=== PATIENT | female | born 1950 | race Caucasian/White ===

== ENCOUNTER 2019-07-26 12:44 | Observation (INO) ==
[2019-07-26 13:23] LABS: Hematocrit 40.8 % (35.3-44.9)
[2019-07-26] MEDS ORDERED: Ringers Solution, Lactated 1,000 ML IVC SCH ×2 (13:45→21:30)
[2019-07-26 14:29] LABS: BUN/Creatinine Ratio 16 (6-26); Blood Urea Nitrogen 11 mg/dL (8-23); Calcium 9.4 mg/dL (8.6-10.3); Carbon Dioxide 25 mEq/L (23-29); Chloride 105 mEq/L (98-107); Glucose 95 mg/dL (70-105); Osmolality,Calculated 289 (280-300); Sodium 140 mEq/L (136-145); eGFR For African Americans > 60 (> 60); eGFR For Non-African Americans > 60 (> 60)
[2019-07-26] MEDS ORDERED: Lidocaine -MPF 1% 5 ML AMPUL INFILT ONE (15:10)
[2019-07-26 15:22] LABS: Basophils # 0.1 K/mcL (0.0-0.2); Basophils % 0.8 %; Eosinophils # 0.2 K/mcL (0.0-0.6); Eosinophils % 2.8 %; Hematocrit 39.3 % (35.3-44.9); Hemoglobin 13.3 g/dL (11.5-15.4); Immature Granulocytes % 0.3 % (0-4); Lymphocytes # 2.2 K/mcL (0.6-4.6); Lymphocytes % 33.7 %; Mean Corpuscular HGB Conc 33.8 g/dL (31.6-35.5); Mean Corpuscular Volume 88.7 fL (83.0-100.0); Mean Platelet Volume 9.8 fL (9.4-12.4); Monocytes # 0.6 K/mcL (0.0-1.3); Neutrophils # 3.3 K/mcL (1.6-8.9); Platelet Count 330 K/mcL (140-400); Red Blood Count 4.43 M/mcL (3.82-4.97); Red Cell Distribution Width 13.6 % (11.5-14.5); Segmented Neutrophils % 52.4 %; White Blood Count 6.4 K/mcL (4.3-11.1)
[2019-07-26] MEDS ORDERED: Famotidine 20 MG/2 ML VIAL IVP ONE (15:54)
[2019-07-26] MEDS ORDERED: Acetaminophen IV 1,000 MG/100 ML INFUS..BTL IVPB ONE (15:54)
[2019-07-26] MEDS ORDERED: Celecoxib 100 MG CAPSULE PO ONE (15:55)
[2019-07-26] MEDS ORDERED: Pregabalin 75 MG CAPSULE PO ONE (15:55)
[2019-07-26] MEDS ORDERED: traMADol 50 MG TABLET PO ONE (15:55)
[2019-07-26] MEDS ORDERED: Scopolamine Patch 1.5 MG PATCH.TD72 TD ONE (16:04)
[2019-07-26] MEDS ORDERED: *HR* Promethazine 25 MG/ML VIAL IVP PRN (16:12)
[2019-07-26] MEDS ORDERED: Ondansetron 4 MG/2 ML VIAL IVP ONE (16:12)
[2019-07-26] MEDS ORDERED: *HR* OxyCODONE Immed Rel 5 MG TABLET PO PRN ×2 (16:12→21:24)
[2019-07-26] MEDS ORDERED: *HR* FentaNYL (PF) 100 MCG/2 ML VIAL ONE (16:14)
[2019-07-26] MEDS ORDERED: *HR* Midazolam HCl 2 MG/2 ML VIAL ONE ×2 (16:14→17:23)
[2019-07-26] MEDS ORDERED: Ethanol\\Acetic Acid\\Na Ace\\Ben 1,000 ML IRRIG.SOLN IR ONE (16:33)
[2019-07-26] MEDS ORDERED: *HR* Propofol 200 MG/20 ML VIAL IVP ONE (16:54)
[2019-07-26] MEDS ORDERED: *HR* Succinylcholine 200 MG/10 ML VIAL IVP ONE (16:54)
[2019-07-26] MEDS ORDERED: Lidocaine -MPF 2% 2 ML VIAL ONE (16:54)
[2019-07-26] MEDS ORDERED: Dexamethasone 4 MG/ML VIAL ONE (17:36)
[2019-07-26] MEDS ORDERED: Ondansetron 4 MG/2 ML VIAL ONE (17:51)
[2019-07-26] MEDS ORDERED: Propofol 500 MG/50 ML INFUS..BTL ONE (18:17)
[2019-07-26] MEDS ORDERED: *HR* HYDROMORPHONE 2 MG/ML VIAL ONE (18:39)
[2019-07-26] MEDS: *HR* HYDROmorphone (PF) 1 MG/ML SYRINGE IVP PRN ×2 (18:58→19:04)
[2019-07-26] MEDS ORDERED: Temazepam 15 MG CAPSULE PO PRN (21:18)
[2019-07-26] MEDS ORDERED: Sennosides 8.6 MG TABLET PO PRN (21:18)
[2019-07-26] MEDS ORDERED: MOM Conc 10 ML UD.LIQ PO PRN (21:18)
[2019-07-26] MEDS ORDERED: Ondansetron 4 MG/2 ML VIAL IVP PRN (21:18)
[2019-07-26] MEDS ORDERED: traMADol 50 MG TABLET PO PRN (21:22)
[2019-07-26] MEDS ORDERED: *HR* HYDROcodone/Acet 5/325 mg TABLET PO PRN (21:24)
[2019-07-26] MEDS ORDERED: Naloxone 0.4 MG/ML INJ IVP PRN (21:29)
[2019-07-26] MEDS ORDERED: Vancomycin 1,750 MG in 0.9 % Sodium Chloride 250 ML IVPB SCH (22:00)
[2019-07-27 04:05] LABS: Hematocrit 38.7 % (35.3-44.9); Hemoglobin 12.8 g/dL (11.5-15.4)
[2019-07-27 04:23] LABS: BUN/Creatinine Ratio 17 (6-26); Blood Urea Nitrogen 12 mg/dL (8-23); Carbon Dioxide 22 mEq/L (23-29); Chloride 103 mEq/L (98-107); Glucose 150 mg/dL (70-105); Osmolality,Calculated 283 (280-300); Potassium 4.3 mEq/L (3.5-5.1); Sodium 135 mEq/L (136-145); eGFR For African Americans > 60 (> 60); eGFR For Non-African Americans > 60 (> 60)
[2019-07-27] MEDS ORDERED: Cholecalciferol (D-3) 1,000 UNIT (25MCG) TABLET PO SCH (09:00)
[2019-07-27] MEDS ORDERED: Multivit/Ca/Min/Fe/FA 1 TAB TABLET PO SCH (09:00)
[2019-07-27 16:31] VITALS: BP 117/52
[2019-07-27] MEDS ORDERED: Aminoglycoside Consult 1 EACH MC ONE (18:28)
[2019-07-27] MEDS ORDERED: Latanoprost 2.5 ML BOTTLE BOTH EYES SCH (21:00)
== END 2019-07-27 18:29 | disposition home health service (06) ==
LOC: SAMDAY 12:44 → 3ANU 12:44
PROVIDERS: ADMIT Orthopaedic Surgery; ATTEND Orthopaedic Surgery

== ENCOUNTER 2020-04-24 13:01 | Observation (INO) ==
[~2020-04-24 13:01] MED LIST: Total Joint Mixture (50 ml) INTRAART ONE
[2020-04-24] MEDS ORDERED: CeFAZolin Syr 2,000MG/20 ML 2,000 MG/20 ML SYRINGE IVPB ONE (13:17)
[2020-04-24] MEDS ORDERED: *HR* FentaNYL (PF) 100 MCG/2 ML VIAL ONE (13:19)
[2020-04-24] MEDS ORDERED: *HR* Midazolam HCl 2 MG/2 ML VIAL ONE (13:19)
[2020-04-24] MEDS ORDERED: *HR* Promethazine 25 MG/ML VIAL IVP PRN ×2 (13:25→16:41)
[2020-04-24] MEDS ORDERED: *HR* Labetalol 20 MG/4 ML SYRINGE IVP PRN (13:25)
[2020-04-24] MEDS ORDERED: *HR* OxyCODONE Immed Rel 5 MG TABLET PO PRN ×2 (13:25→16:41)
[2020-04-24] MEDS ORDERED: *HR* HYDROmorphone (PF) 1 MG/ML SYRINGE IVP PRN (13:25)
[2020-04-24] MEDS ORDERED: Ondansetron 4 MG/2 ML VIAL IVP PRN (13:25)
[2020-04-24] MEDS ORDERED: Celecoxib 200 MG CAPSULE PO ONE (13:30)
[2020-04-24] MEDS ORDERED: *HR* OxyCODONE ER (12 HR) 10 MG TABLET PO ONE (13:30)
[2020-04-24] MEDS ORDERED: Ringers Solution, Lactated 1,000 ML IVC SCH ×2 (13:30→16:41)
[2020-04-24] MEDS ORDERED: Ropivacaine/PF 0.5% 30 ML VIAL ONE (13:40)
[2020-04-24] MEDS ORDERED: Vancomycin 1,000 MG VIAL ONE (14:06)
[2020-04-24] MEDS ORDERED: Ethanol\\Acetic Acid\\Na Ace\\Ben 1,000 ML IRRIG.SOLN IR ONE (14:06)
[2020-04-24] MEDS ORDERED: Tranexamic Acid 1,000 MG/10 ML VIAL ONE (14:53)
[2020-04-24] MEDS ORDERED: Vancomycin 1,750 MG/517.5 ML IV.SOLN IVPB ONE (15:03)
[2020-04-24] MEDS ORDERED: Naloxone 0.4 MG/ML INJ IVP PRN (16:41)
[2020-04-24] MEDS ORDERED: Dextrose Gel 15 GM/37.5 ML TUBE PO PRN ×2 (16:41)
[2020-04-24] MEDS ORDERED: D5% in Water 1,000 ML IVC PRN (16:41)
[2020-04-24] MEDS ORDERED: Ibuprofen 400 MG TABLET PO PRN (16:41)
[2020-04-24] MEDS ORDERED: Sennosides 8.6 MG TABLET PO PRN (16:41)
[2020-04-24] MEDS ORDERED: MOM Conc 10 ML UD.LIQ PO PRN (16:41)
[2020-04-24] MEDS ORDERED: *HR* Dextrose 50 % in Water (Vial) 50 ML VIAL IVP PRN (16:41)
[2020-04-24] MEDS: Ascorbic Acid 500 MG TABLET PO SCH (17:34)
[2020-04-24] MEDS: Insulin LISPRO 300 UNITS/3 ML VIAL SQ SCH ×2 (17:34→20:32)
[2020-04-24 17:53] LABS: Hematocrit 38.7 % (35.3-44.9); Hemoglobin 12.3 g/dL (11.5-15.4)
[2020-04-24] MEDS: Latanoprost 2.5 ML BOTTLE BOTH EYES SCH (21:03)
[2020-04-24] MEDS: CeFAZolin 2 GM/120 ML BAG IVPB SCH (22:41)
[2020-04-25] MEDS: Vancomycin 1,500 MG/265 ML IV.SOLN IVPB SCH ×2 (02:39→15:46)
[2020-04-25] MEDS ORDERED: Vancomycin 1,750 MG in 0.9 % Sodium Chloride 250 ML IVPB SCH (04:00)
[2020-04-25 05:29] LABS: Basophils % 0.1 %; Hematocrit 35.5 % (35.3-44.9); Hemoglobin 11.4 g/dL (11.5-15.4); Immature Granulocytes % 0.4 % (0-4); Lymphocytes # 0.9 K/mcL (0.6-4.6); Lymphocytes % 6.6 %; Mean Corpuscular HGB Conc 32.1 g/dL (31.6-35.5); Mean Corpuscular Hemoglobin 29.5 pg (28.0-33.3); Mean Corpuscular Volume 91.7 fL (83.0-100.0); Mean Platelet Volume 10.2 fL (9.4-12.4); Monocytes # 0.7 K/mcL (0.0-1.3); Monocytes % 5.1 %; Neutrophils # 11.5 K/mcL (1.6-8.9); Platelet Count 289 K/mcL (140-400); Red Blood Count 3.87 M/mcL (3.82-4.97); Red Cell Distribution Width 13.5 % (11.5-14.5); Segmented Neutrophils % 87.8 %; White Blood Count 13.1 K/mcL (4.3-11.1)
[2020-04-25 05:50] LABS: BUN/Creatinine Ratio 24 (6-26); Blood Urea Nitrogen 15 mg/dL (8-23); Calcium 9.1 mg/dL (8.6-10.3); Carbon Dioxide 22 mEq/L (23-29); Chloride 107 mEq/L (98-107); Glucose 137 mg/dL (70-105); Osmolality,Calculated 287 (280-300); Potassium 4.1 mEq/L (3.5-5.1); Sodium 137 mEq/L (136-145); eGFR For African Americans > 60 (> 60); eGFR For Non-African Americans > 60 (> 60)
[2020-04-25] MEDS: CeFAZolin 2 GM/120 ML BAG IVPB SCH (06:46)
[2020-04-25] MEDS: Insulin LISPRO 300 UNITS/3 ML VIAL SQ SCH ×4 (07:45→20:52)
[2020-04-25] MEDS: Ascorbic Acid 500 MG TABLET PO SCH ×2 (07:51→17:21)
[2020-04-25] MEDS: Cholecalciferol (D-3) 1,000 UNIT (25MCG) TABLET PO SCH (07:51)
[2020-04-25] MEDS: Ondansetron 4 MG/2 ML VIAL IVP PRN (07:51)
[2020-04-25] MEDS: Multivit/Ca/Min/Fe/FA 1 TAB TABLET PO SCH (07:51)
[2020-04-25] MEDS ORDERED: MULTIVIT MIN PO SCH (09:00)
[2020-04-25] MEDS ORDERED: [UNRECOGNIZED DRUG - OTHER] PO SCH (09:00)
[2020-04-25] MEDS ORDERED: LUTEIN PO SCH (09:00)
[2020-04-25] MEDS ORDERED: FOLIC ACID PO SCH (09:00)
[2020-04-25] MEDS: Aspirin Enteric Coated 81 MG Tablet PO SCH (15:44)
[2020-04-25] MEDS: Latanoprost 2.5 ML BOTTLE BOTH EYES SCH (20:43)
[2020-04-26 03:50] LABS: Basophils % 0.2 %; Eosinophils # 0.1 K/mcL (0.0-0.6); Eosinophils % 0.8 %; Hematocrit 33.8 % (35.3-44.9); Immature Granulocytes % 0.3 % (0-4); Lymphocytes # 1.8 K/mcL (0.6-4.6); Lymphocytes % 20.1 %; Mean Corpuscular HGB Conc 32.5 g/dL (31.6-35.5); Mean Corpuscular Hemoglobin 29.6 pg (28.0-33.3); Mean Corpuscular Volume 90.9 fL (83.0-100.0); Mean Platelet Volume 10.3 fL (9.4-12.4); Monocytes # 0.8 K/mcL (0.0-1.3); Monocytes % 9.5 %; Neutrophils # 6.1 K/mcL (1.6-8.9); Platelet Count 280 K/mcL (140-400); Red Blood Count 3.72 M/mcL (3.82-4.97); Red Cell Distribution Width 13.7 % (11.5-14.5); Segmented Neutrophils % 69.1 %; White Blood Count 8.8 K/mcL (4.3-11.1)
[2020-04-26 04:07] LABS: BUN/Creatinine Ratio 25 (6-26); Blood Urea Nitrogen 17 mg/dL (8-23); Carbon Dioxide 25 mEq/L (23-29); Chloride 105 mEq/L (98-107); Glucose 134 mg/dL (70-105); Osmolality,Calculated 290 (280-300); Potassium 3.8 mEq/L (3.5-5.1); Sodium 138 mEq/L (136-145); eGFR For African Americans > 60 (> 60); eGFR For Non-African Americans > 60 (> 60)
[2020-04-26] MEDS: Vancomycin 1,500 MG/265 ML IV.SOLN IVPB SCH (04:13)
[2020-04-26] MEDS: Ascorbic Acid 500 MG TABLET PO SCH ×2 (08:08→17:13)
[2020-04-26] MEDS: Aspirin Enteric Coated 81 MG Tablet PO SCH (08:08)
[2020-04-26] MEDS: Multivit/Ca/Min/Fe/FA 1 TAB TABLET PO SCH (08:08)
[2020-04-26] MEDS: Cholecalciferol (D-3) 1,000 UNIT (25MCG) TABLET PO SCH (08:12)
[2020-04-26] MEDS: Insulin LISPRO 300 UNITS/3 ML VIAL SQ SCH ×4 (08:12→22:02)
[2020-04-26] MEDS: Ondansetron 4 MG/2 ML VIAL IVP PRN (09:33)
[2020-04-26] MEDS: Vancomycin 1,250 MG/262.5 ML IV.SOLN IVPB SCH (16:23)
[2020-04-26] MEDS: Latanoprost 2.5 ML BOTTLE BOTH EYES SCH (22:02)
[2020-04-27] MEDS: Vancomycin 1,250 MG/262.5 ML IV.SOLN IVPB SCH (05:09)
[2020-04-27] MEDS: Cholecalciferol (D-3) 1,000 UNIT (25MCG) TABLET PO SCH (07:47)
[2020-04-27] MEDS: Ascorbic Acid 500 MG TABLET PO SCH (07:47)
[2020-04-27] MEDS: Insulin LISPRO 300 UNITS/3 ML VIAL SQ SCH ×2 (07:47→11:10)
[2020-04-27] MEDS: Multivit/Ca/Min/Fe/FA 1 TAB TABLET PO SCH (07:47)
[2020-04-27] MEDS: Aspirin Enteric Coated 81 MG Tablet PO SCH (07:47)
[2020-04-27 10:55] VITALS: BP 144/82
[2020-04-27] MEDS ORDERED: Doxycycline 100 MG CAPSULE PO SCH (18:00)
== END 2020-04-27 15:25 ==
LOC: 3NENU 13:01 → SAMDAY 13:01 → 3NENU 16:35
PROVIDERS: ADMIT Orthopaedic Surgery; ATTEND Orthopaedic Surgery